=== PATIENT | female | born 1980 | race Caucasian/White ===

== ENCOUNTER 2022-03-15 09:42 | Emergency (ER) | payer OTHER, SELFPAY ==
--- NOTE | ~2022-03-15 | CT_ITS ---
EXAMINATION: CT abdomen pelvis w con DATE: 03/15/2022 14:03 INDICATION: Epigastric pain with vomiting TECHNIQUE: Computed tomography (CT) of the abdomen and pelvis was performed with 100 mL Omnipaque-350 intravenous contrast. Automated exposure control and iterative reconstruction technique were employe d. The dose-length product was 247.51 mGy-cm. COMPARISON: None FINDINGS: Lung bases are clear. Heart size is normal. No pericardial or pleural effusion. Liver, spleen, pancre as, bilateral adrenal glands and kidneys are normal. Gallbladder is not visualized and likely surgica lly absent. There is fluid throughout the colon consistent with diarrhea. No bowel obstruction. The a ppendix is not visualized. No pericecal inflammatory change to suggest acute appendicitis. Bladder is normal. The uterus is not identified and has likely been surgically resected. 1.6 cm peripherally en hancing right corpus luteum cyst No free intraperitoneal gas or fluid. No pathologically enlarged abd ominal or pelvic lymphadenopathy. A few sclerotic bone islands in the pelvis most prominent at the le ft ischial. IMPRESSION: 1. Fluid throughout the nondilated small bowel and colon consistent with diarrhea. Correlate clinical ly for enteritis. 2. 1.6 cm corpus luteum cyst at the right ovary. Reviewed, dictated and finalized at [facility] NURSE IMPRESSION: 1. Fluid throughout the nondilated small bowel and colon consistent with diarrh ea. Correlate clinically for enteritis. 2. 1.6 cm corpus luteum cyst at the right ovary.
[2022-03-15 09:45] VITALS: BP 110/65; PULSE 110; RESP 18; TEMP 36.6; O2SAT 99
[2022-03-15 09:57] LABS: Basophils Percent Auto 0.2 % (0.2-1.2); Eosinophils Absolute Auto 0.1 K/mm3 (0-0.3); Eosinophils Percent Auto 0.5 % (0-4.4); Hematocrit 48.4 % (37.0-47.0); Hemoglobin 16.3 g/dL (12.0-15.0); Immature Granulocyte Absolute 0.07 K/mm3 (0.00-0.031); Immature Granulocyte Percent A 0.4 % (0-0.5); Lymphocytes Absolute Auto 0.36 K/mm3 (0.9-3.2); Lymphocytes Percent Auto 2.1 % (18.3-44.2); Mean Corpuscular HGB Conc 33.7 g/dl (32-36); Mean Corpuscular Hemoglobin 29.3 pg (26-34); Mean Corpuscular Volume 87.1 fl (80-100); Mean Platelet Volume 8.8 fl (7.4-10.4); Monocytes Absolute Auto 0.5 K/mm3 (0.1-0.6); Neutrophils Absolute Auto 16.4 K/mm3 (1.3-6.7); Neutrophils Percent Auto 93.8 % (45.5-73.1); Platelet Count Result 293 k/mm3 (150-375); Red Blood Count 5.56 M/mm3 (4.2-5.4); Red Cell Distribution Width 12.8 % (11.5-14.5); White Blood Count 17.4 K/mm3 (4.5-10.0)
[2022-03-15 10:05] LABS: Alanine Aminotransferase 31 U/L (6-35); Albumin Level 5.4 g/dL (3.5-5.1); Alkaline Phosphatase 83 U/L (38-126); Anion Gap 12 mmol/L (8-16); Aspartate Amino Transferase 37 U/L (14-36); Blood Urea Nitrogen 14 mg/dL (7-17); Calcium 9.3 mg/dL (8.4-10.2); Carbon Dioxide 20 mmol/L (22-30); Chloride 105 mmol/L (98-107); Estimated CRCL calculation 64 ml/min; Estimated Glomerular Filt Rate > 60; Glucose 120 mg/dL (65-110); Lipase 109 U/L (23-300); Potassium 4.6 mmol/L (3.4-5.0); Sodium 137 mmol/L (137-145)
[2022-03-15 11:21] VITALS: BP 98/66; PULSE 96; RESP 20; O2SAT 100
[2022-03-15 12:00] VITALS: BP 122/87; PULSE 96; RESP 18; O2SAT 98
--- NOTE | 2022-03-15 12:03 | ED.NAVMDI ---
HPI - Nausea/Vomiting/Diarrhea General Chief complaint: Nausea/Vomiting/Diarrhea Stated complaint: N/V Time Seen by Provider: 03/15/22 11:21 History of Present Illness HPI Narrative: Patient is a 41-year-old female presenting with abdominal pain. Patient states that she has had problems with abdominal pain in the past but this is more severe than its ever been. States that she has had numerous episodes of vomiting overnight. States that she took some Bentyl which did not help with her symptoms. Also reports episodes of diarrhea. She denies fevers or chills, chest pain, shortness of breath, cough, dysuria, hematuria. Related Data Allergies Allergy/AdvReac Type Severity Reaction Status Date / Time No Known Allergies Allergy Verified 03/15/22 12:17 Review of Systems Review of Systems: All systems reviewed & are unremarkable except as noted in HPI and below Exam Narrative: GENERAL: Tearful secondary to pain HEAD: Normocephalic, atraumatic. EYES: PERRLA and EOMI. ENT: Nares clear, no rhinorrhea or epistaxis. Mucous membranes moist. NECK: Supple. CHEST: Clear to auscultation. No respiratory distress. HEART: Regular rate and rhythm. No murmur heard. Normal peripheral pulses. ABDOMEN: Soft, diffusely tender especially in epigastrium, nondistended, normal active bowel sounds. EXTREMITIES: Normal range of motion. No edema. SKIN: Warm, dry, no rash. NEURO: No focal deficits. Alert and oriented x3. PSYCH: Normal mood and affect. Course Vital Signs Vital signs: Vital Signs Temperature 97.9 F 03/15/22 09:45 Pulse Rate 110 H 03/15/22 09:45 Respiratory Rate 18 03/15/22 09:45 Blood Pressure 110/65 03/15/22 09:45 Pulse Oximetry 99 03/15/22 09:45 Oxygen Delivery Room Air 03/15/22 09:45 Temperature 97.9 F 03/15/22 09:45 Pulse Rate 86 03/15/22 15:10 Respiratory Rate 16 03/15/22 15:10 Blood Pressure 108/67 03/15/22 15:10 Pulse Oximetry 100 03/15/22 15:10 Oxygen Delivery Room Air 03/15/22 11:21 MDM - Nausea/Vomiting/Diarrhea MDM Narrative Medical decision making narrative: Patient is a 41-year-old female presenting with abdominal pain, vomiting, diarrhea. Patient was initially tachycardic on arrival however this had resolved by the time I saw her. Vitals are within normal limits. Patient is tearful due to her pain. She is diffusely tender. Blood work with leukocytosis of 17.4. Remainder of blood work is unremarkable. UA is unremarkable. CT abdomen pelvis is concerning for enteritis. On reevaluation, the patient is sleeping comfortably. She states her pain is much better. She was able to tolerate fluids. Discussed the reassuring work-up. Will prescribe Zofran and advised Tylenol and naproxen for pain control. 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 Appropriate return precautions given. Patient discharged in stable condition. Lab Data 03/15/22 09:49 03/15/22 09:49 Labs: Lab Results 03/15/22 03/15/22 03/15/22 Range/Units 09:49 09:49 12:52 WBC 17.4 H (4.5-10.0) K/mm3 RBC 5.56 H (4.2-5.4) M/mm3 Hgb 16.3 H (12.0-15.0) g/dL Hct 48.4 H (37.0-47.0) % MCV 87.1 (80-100) fl MCH 29.3 (26-34) pg MCHC 33.7 (32-36) g/dl RDW 12.8 (11.5-14.5) % Plt Count 293 (150-375) k/mm3 MPV 8.8 (7.4-10.4) fl Immature Gran % (Auto) 0.4 (0-0.5) % Neut % (Auto) 93.8 H (45.5-73.1) % Lymph % (Auto) 2.1 L (18.3-44.2) % [place] % (Auto) 3.0 (2.6-8.5) % Eos % (Auto) 0.5 (0-4.4) % Baso % (Auto) 0.2 (0.2-1.2) % Lymph # (Auto) 0.36 L (0.9-3.2) K/mm3 [place] # (Auto) 0.5 (0.1-0.6) K/mm3 Eos # (Auto) 0.1 (0-0.3) K/mm3 Baso # (Auto) 0.0 (0.0-0.1) K/mm3 Abs Immat Gran (auto) 0.07 H (0.00-0.031) K/mm3 Absolute Neuts (auto) 16.4 H (1.3-6.7) K/mm3 Absolute Nucleated RBC 0.0 (0.0-0.012) K/mm3 Nucleated RBC % 0.0 (0.0-0.2) % Sodium
[2022-03-15] MEDS: ONDANSETRON INJ 4 MG/2 ML VIAL IV PUSH (12:19)
[2022-03-15] MEDS: HYDROmorphone HCL INJ (*CRX) 1 MG/ML SYR 0.5 MG IV PUSH (12:19)
[2022-03-15] MEDS: SODIUM CHLORIDE 0.9% IV 1,000 ML 999 ML IV CONT (12:21)
[2022-03-15 12:59] LABS: Add Urine Microscopic? YES; Appearance Urine Clear (Clear); Bilirubin Urine 1+ (Negative); Blood Urine Negative (Negative); Color Urine Yellow (Yellow); Glucose Urine UA Negative (Negative); Ketones Urine Trace mg/dL (Negative); Leukocyte Esterase Ur Negative LEU/UL (Negative); Nitrate Urine Negative (Negative); Protein Urine Negative (Negative); Specific Grav Ur >= 1.030 (1.001-1.035); Urobilinogen Urine 0.2 mg/dL (<2.0); pH Urine 5.5 (5.0-9.0)
[2022-03-15 13:07] LABS: Bacteria Urine Trace /hpf; Mucus Urine Rare /lpf; RBC Urine 0-2 /hpf (0-2); Squamous Epithelial Cell Urine Rare /hpf (Few); WBC Urine 0-3 /hpf
--- NOTE | 2022-03-15 13:54 | PC.NURSE ---
Pt to CT
[2022-03-15 14:07] VITALS: BP 115/78; PULSE 88; RESP 18; O2SAT 100
[2022-03-15 15:10] VITALS: BP 108/67; PULSE 86; RESP 16; O2SAT 100
[2022-03-15] MEDS: KETOROLAC 15 MG/ML VIAL (*BKC) IV PUSH (16:24)
== END 2022-03-15 16:44 | disposition home or self-care (01) ==
PROVIDERS: Emergency Provider Emergency Medicine
DX: K52.9 Noninfective gastroenteritis and colitis, unspecified (principal)
CPT/HCPCS: 36415; 51701; 74177; 80053; 81001; 81025; 83690; 85025; 96361; 96374; 96375; 99284; J0131; J1170; J1885; J2405; J7030; Q9967

== ENCOUNTER 2022-03-16 04:50 | Emergency (ER) | payer OTHER, SELFPAY ==
[2022-03-16 04:53] VITALS: BP 105/65; PULSE 84; RESP 18; TEMP 36.7; O2SAT 99
--- NOTE | 2022-03-16 05:08 | ED.ABDPAIN ---
HPI - Abdominal Pain General Chief Complaint: Abdominal Pain Stated Complaint: abd pain, n/v/d - seen yesterday Time Seen by Provider: 03/16/22 04:53 History of Present Illness HPI narrative: 41-year-old female returning to the emergency department for evaluation of worsening abdominal pain. Patient was seen in the emergency department earlier today and diagnosed with an enteritis. Patient reports she has had prior issues with abdominal pain but this is most severe abdominal pain she has had. Patient did take Bentyl earlier that did not help with her symptoms. Earlier patient was complaining of diarrhea and she states that the diarrhea has persisted. Patient denies denying any chest pain or shortness of breath. Patient denies any vaginal bleeding, dysuria or hematuria. Patient does have a previous surgical history of cholecystectomy Related Data Allergies Allergy/AdvReac Type Severity Reaction Status Date / Time No Known Allergies Allergy Verified 03/15/22 12:17 Review of Systems Review of Systems: CONSTITUTIONAL: Denies fever, chills, or sweats. EYES: Denies visual changes, redness, or discharge. ENT: Denies rhinorrhea, congestion, sore throat, or otalgia. CARDIOVASCULAR: Denies chest pain, palpitations, or edema. RESPIRATORY: Denies cough or dyspnea. GASTROINTESTINAL: See HPI GENITOURINARY: Denies dysuria or hematuria. SKIN: Denies rash or itching. MUSCULOSKELETAL: Denies back pain, joint pain, or myalgia. NEUROLOGIC: Denies headache, numbness, or weakness. Exam Narrative: APPEARANCE: Well appearing, no pain, no distress, well-nourished. HEAD: normocephalic, atraumatic. EYES: PERRLA/EOMI, conjunctivae clear. NOSE: Normal no drainage NECK: Supple. No adenopathy, no masses. RESPIRATORY: Airway patent, respirations nonlabored. Clear to auscultation bilaterally, no rales, rhonchi, wheezing. CARDIOVASCULAR: Regular rate and rhythm without murmurs rubs or gallops. ABDOMINAL: Soft, normal bowel sounds and no reproducible tenderness to palpation. MUSCULOSKELETAL: Moves all extremities. Strength/ROM intact, No edema, No calf tenderness. NEURO: Alert. Cranial nerves II through XII intact. Intact SKIN: Warm, dry. Normal Color Course Course Emergency Course: Patient's abdominal exam was benign. Patient has a nonsurgical abdomen with no tenderness to palpation. Patient reports she did feel improved with treatment. Patient's nausea and vomiting was resolved. Patient was provided additional medication for pain control for home and patient was also encouraged to have close follow-up with her GI physician. Repeat labs showed no significant changes. Patient was afebrile and had no leukocytosis. Patient had no significant electrolyte changes. Patient did have a slight elevation in her AST and ALT but this could be due to the enteritis. Vital Signs Vital signs: Vital Signs Temperature 98.1 F 03/16/22 04:53 Pulse Rate 84 03/16/22 04:53 Respiratory Rate 18 03/16/22 04:53 Blood Pressure 105/65 03/16/22 04:53 Pulse Oximetry 99 03/16/22 04:53 Oxygen Delivery Room Air 03/16/22 04:53 Temperature 98.1 F 03/16/22 04:53 Pulse Rate 83 03/16/22 06:16 Respiratory Rate 14 03/16/22 06:16 Blood Pressure 92/54 L 03/16/22 06:16 Pulse Oximetry 97 03/16/22 06:16 Oxygen Delivery Room Air 03/16/22 04:53 MDM - Abdominal Pain Lab Data Attestation: I reviewed the patient's lab results. 03/16/22 05:05 03/16/22 05:05 Labs: Lab Results 03/16/22 03/16/22 03/16/22 Range/Units 05:05 05:05 05:05 WBC 4.8 (4.5-10.0) K/mm3 RBC 4.81 (4.2-5.4) M/mm3 Hgb 13.9 (12.0-15.0) g/dL Hct 41.5 (37.0-47.0) % MCV 86.3 (80-100) fl MCH 28.9 (26-34) pg MCHC 33.5 (32-36) g/dl RDW 12.8 (11.5-14.5) % Plt Count 185 (150-375) k/mm3 MPV 9.4 (7.4-10.4) fl Immature Gran % (Auto) 0.4 (0-0.5) % Neut % (Auto) 76.8 H (45.5-73.1) % Lymph %
[2022-03-16] MEDS: SODIUM CHLORIDE 0.9% IV 1,000 ML 999 ML IV CONT (05:14)
[2022-03-16] MEDS: HYDROmorphone HCL INJ (*CRX) 1 MG/ML SYR IV PUSH (05:14)
[2022-03-16] MEDS: diphenhydrAMINE HCl INJ 50 MG/ML VIAL 25 MG IV PUSH (05:16)
[2022-03-16] MEDS: METOCLOPRAMIDE HCL INJ 10 MG/2 ML VIAL IV PUSH (05:19)
[2022-03-16 05:21] LABS: Alanine Aminotransferase 306 U/L (6-35); Albumin Level 4.4 g/dL (3.5-5.1); Alkaline Phosphatase 104 U/L (38-126); Anion Gap 9 mmol/L (8-16); Aspartate Amino Transferase 444 U/L (14-36); Bilirubin,Total 1.3 mg/dL (0.2-1.3); Blood Urea Nitrogen 16 mg/dL (7-17); Calcium 8.5 mg/dL (8.4-10.2); Carbon Dioxide 20 mmol/L (22-30); Chloride 105 mmol/L (98-107); Estimated CRCL calculation 64 ml/min; Estimated Glomerular Filt Rate > 60; Glucose 92 mg/dL (65-110); Potassium 3.9 mmol/L (3.4-5.0); Sodium 134 mmol/L (137-145)
[2022-03-16 05:24] LABS: Basophils Percent Auto 0.4 % (0.2-1.2); Eosinophils Absolute Auto 0.1 K/mm3 (0-0.3); Hematocrit 41.5 % (37.0-47.0); Hemoglobin 13.9 g/dL (12.0-15.0); Immature Granulocyte Absolute 0.02 K/mm3 (0.00-0.031); Immature Granulocyte Percent A 0.4 % (0-0.5); Lymphocytes Percent Auto 12.5 % (18.3-44.2); Mean Corpuscular HGB Conc 33.5 g/dl (32-36); Mean Corpuscular Hemoglobin 28.9 pg (26-34); Mean Corpuscular Volume 86.3 fl (80-100); Mean Platelet Volume 9.4 fl (7.4-10.4); Monocytes Absolute Auto 0.4 K/mm3 (0.1-0.6); Monocytes Percent Auto 8.9 % (2.6-8.5); Neutrophils Absolute Auto 3.7 K/mm3 (1.3-6.7); Neutrophils Percent Auto 76.8 % (45.5-73.1); Platelet Count Result 185 k/mm3 (150-375); Red Blood Count 4.81 M/mm3 (4.2-5.4); Red Cell Distribution Width 12.8 % (11.5-14.5); White Blood Count 4.8 K/mm3 (4.5-10.0)
[2022-03-16 06:16] VITALS: BP 92/54; PULSE 83; RESP 14; O2SAT 97
[2022-03-16] MEDS: LACTATED RINGERS 1,000 ML 999 ML IV CONT (06:45)
[2022-03-16] MEDS: HYDROcodone/acetaminophen (*CRX) 5-325 MG TABLET 1 TAB PO (07:53)
== END 2022-03-16 07:57 | disposition home or self-care (01) ==
PROVIDERS: Emergency Provider Emergency Medicine
DX: R10.9 Unspecified abdominal pain (principal); R19.7 Diarrhea, unspecified; N83.11 Corpus luteum cyst of right ovary
CPT/HCPCS: 36415; 80053; 83605; 85025; 96361; 96374; 96375; 99284; A9270; J1170; J1200; J2765; J7030; J7120